=== PATIENT | female | born 1960 | race Caucasian/White ===

== ENCOUNTER → 2016-09-07 | Outpatient (REF) ==
[~2016-09-07] MED LIST: ADV250INH INH; ALBU17IN INH; ALBU83IN INH; ARIP240S PO; ATOR1TAB19 PO; ATOR40TA PO; BIOT1CAP2 PO; BREO1INH3 INH; BUSP10TA PO; BUSP30TA PO; CALC250T PO; CLON1TAB PO; CLONI1TA PO; DULO30CA PO; FLUT22IN INH; GABA-283 PO; GABA300C3 PO; GLUC500T PO; INCR1INH IN; LASI20TA PO; LEVA500T PO; LEVA750T PO; LISI2.5T3 PO; LYRI100C10 PO; MELO7.5S PO; METF500T PO; MIRT30TA2 PO; MULTCAP PO; NEUR300C PO; NICO14DI20 TD; NICO21PAT TD; NYST10PW TOP; OMEP40CA2 PO; OXYC1TAB23 PO; PERC5TAB6 PO; PRED10TA PO; PRED20TAB PO; ROBA750T4 PO; SALMDISK INH; SOMA350T PO; TIZA4CAP3 PO; TOPA100T8 PO; TRAM50TA2 PO; TRAZ50TA4 PO; VARE1TA PO; VITA10002 PO; ZALE10CA PO; metformin PO
--- NOTE | 2016-09-08 02:42 | REP ---
Clinical: Pain and disability. Technique: AP, lateral, coned-down views of the lumbosacral spine. Comparison: 11/07/2014. Findings: Alignment and lordosis maintained without evidence for acute fracture / compression injury or subluxation. Mild to early moderate multilevel degenerative changes include anterior spurring, endplate sclerosis and hypertrophic facet changes as well as mild disc space narrowing at the L5-L1 level. Impression: Mild to early moderate multilevel degenerative changes. Signed by Ricardo Naranjo MD 09/08/2016 02:35 A
== END ==
LOC: M SMT 13:15
PROVIDERS: ATTEND Internal Medicine
DX: Z02.71 Encounter for disability determination (principal); M54.5 Low back pain

== ENCOUNTER → 2016-09-20 | Day surgery (SDC) | payer OTHER ==
[~2016-09-20] VITALS: Ht 170.2 cm; Wt 103.9 kg
[~2016-09-20] MED LIST changes: +ACETAMINOPH W/CODEINE #3 TAB UD PO PRN; +AMOX500C PO; +BACITRACIN OINT 30GM As Ordered ONE; +DESFLURANE 240 ML INHALANT As Ordered ONE; +LIDOCAINE 2% INJ 100 MG/5 ML SDV (FOR ANES.) As Ordered ONE; +LIDOCAINE W/EPINEPHRINE 1% 20ML VIAL As Ordered ONE; +LIDOCAINE W/EPINEPHRINE 1% 20ML VIAL XX ONE; +LR 1,000 ML IV SCH; +MIDAZOLAM INJ 2 MG/2 ML VIAL (J2250) As Ordered ONE; +MORPHINE 2 MG/ML 1ML SYRINGE IV PRN; +ONDANSETRON 4MG/2ML VIAL (J2405) As Ordered ONE; +ONDANSETRON 4MG/2ML VIAL (J2405) IV PRN; +PROPOFOL 200 MG/20 ML VIAL As Ordered ONE; +ROCURONIUM BROMIDE 50 MG/5 ML VIAL As Ordered ONE; +SUCCINYLCHOLINE 100 MG/5 ML SYRINGE (J0330) As Ordered ONE; +ePHEDrine SULFATE 25 MG/5 ML(5MG/ML) SYRINGE As Ordered ONE; +fentaNYL 100 MCG/2 ML INJECTION (J3010) As Ordered ONE
[2016-09-20] MEDS: fentaNYL 100 MCG/2 ML INJECTION (J3010) IV PRN ×4 (09:08→09:31)
[2016-09-20 10:50] VITALS: BP 130/66
--- NOTE | 2016-09-20 18:28 | RO ---
DATE OF PROCEDURE: 09/20/2016 PREOPERATIVE DIAGNOSIS: Mass right neck. POSTOPERATIVE DIAGNOSIS: Mass right neck. OPERATIVE PROCEDURE: Excision mass right neck. SURGEON: Gabe Viera MD ACCOUNT SERVICES SPECIALIST: ANESTHESIA: DESCRIPTION OF PROCEDURE: Under general anesthesia with the patient intubated, the patient was draped in the usual manner. I used a Nim monitor during the procedure. I went through the previous parotidectomy scar. I divided the skin and subcutaneous tissues. Using sharp and blunt dissection, I dissected through the tissues around the mass. I did use the nerve stimulator to ensure that the nerve was not in the area that I was cutting. I did identify the structure that looked like the nerve and overlies that other way. I removed the mass. Bleeding was controlled with cautery. I did use the harmonic scalpel. Then I revised the previous skin incision by incising tissue anteriorly on the anterior part of the dissection and then in inferior along the lobule. I then sutured the area with #4-0 Vicryl and #5-0 nylon. I did put Surgicel in the wound prior to closure. The patient tolerated the procedure well. The patient was extubated and transferred to the recovery room in excellent condition. Date: 09/20/2016 ADDENDUM: Last Pattern Grader was Cameron Astudillo.
--- NOTE | 2016-09-20 22:13 | ECGEPIP ---
Stationary ECG Study [facility] Test Date: 2016-09-20 Pat Name: NATHALIE ORLANDO Department: Room: - Gender: F Discharge Planner: MENDOZA : 1960 Requested By: MARILYN Montano Order Number: [id number] Reading MD: Sheldon Mcelryo Measurements Intervals [place] Rate: 90 P: 60 DC: 193 QRS: 69 QRSD: 92 T: 42 QT: 367 QTc: 450 Interpretive Statements SINUS RHYTHM LOW QRS VOLTAGE IN PRECORDIAL LEADS ANTEROSEPTAL MYOCARDIAL INFARCTION, OF INDETERMINATE AGE Decreased heart rate and decreased anteroseptal R waves compared with 03/07/2015. Electronically Signed On 09-20-2016 22:13:37 EST by Sheldon Mcelroy
== END | disposition home or self-care (01) ==
LOC: M SDC 05:41
PROVIDERS: ATTEND Otolaryngology
DX: R22.1 Localized swelling, mass and lump, neck (principal); D48.5 Neoplasm of uncertain behavior of skin; J43.9 Emphysema, unspecified; G89.29 Other chronic pain; M54.5 Low back pain; F32.89 Other specified depressive episodes; E11.40 Type 2 diabetes mellitus with diabetic neuropathy, unspecified; E78.2 Mixed hyperlipidemia; F41.1 Generalized anxiety disorder; G47.33 Obstructive sleep apnea (adult) (pediatric); Z98.84 Bariatric surgery status; K76.0 Fatty (change of) liver, not elsewhere classified; Z72.0 Tobacco use; T88.59XD Other complications of anesthesia, subsequent encounter; I25.2 Old myocardial infarction; I10 Essential (primary) hypertension; K21.9 Gastro-esophageal reflux disease without esophagitis; R06.02 Shortness of breath; Z91.09 Other allergy status, other than to drugs and biological substances; Z79.899 Other long term (current) drug therapy
CPT/HCPCS: 21555; 88305; 93005; J0330; J2250; J2405; J3010

== ENCOUNTER → 2016-11-15 | Outpatient (CLI) | payer OTHER ==
[~2016-11-15] MED LIST changes: -ACETAMINOPH W/CODEINE #3 TAB UD PO PRN; -BACITRACIN OINT 30GM As Ordered ONE; -DESFLURANE 240 ML INHALANT As Ordered ONE; +GABA-282 PO; -GABA300C3 PO; -LIDOCAINE 2% INJ 100 MG/5 ML SDV (FOR ANES.) As Ordered ONE; -LIDOCAINE W/EPINEPHRINE 1% 20ML VIAL As Ordered ONE; -LIDOCAINE W/EPINEPHRINE 1% 20ML VIAL XX ONE; -LR 1,000 ML IV SCH; -MIDAZOLAM INJ 2 MG/2 ML VIAL (J2250) As Ordered ONE; -MORPHINE 2 MG/ML 1ML SYRINGE IV PRN; -ONDANSETRON 4MG/2ML VIAL (J2405) As Ordered ONE; -ONDANSETRON 4MG/2ML VIAL (J2405) IV PRN; -PROPOFOL 200 MG/20 ML VIAL As Ordered ONE; -ROCURONIUM BROMIDE 50 MG/5 ML VIAL As Ordered ONE; -SUCCINYLCHOLINE 100 MG/5 ML SYRINGE (J0330) As Ordered ONE; -ePHEDrine SULFATE 25 MG/5 ML(5MG/ML) SYRINGE As Ordered ONE; -fentaNYL 100 MCG/2 ML INJECTION (J3010) As Ordered ONE
--- NOTE | 2016-11-20 23:53 | ECWPNPC ---
PATIENT NAME: NATHALIE ORLANDO : 1960 GENDER: FEMALE VISIT DATE: 11/15/2016 DISCHARGE DATE: 11/15/16 1425 VISIT LOCKED DATE TIME: PHYSICIAN: BOSTON ZIMMERMAN RESOURCE: BOSTON ZIMMERMAN REASON FOR APPOINTMENT 1. LOW BACK PAIN HISTORY OF PRESENT ILLNESS HISTORY OF PRESENT ILLNESS: PAIN THE PATIENT DESCRIBES THE PAIN... 56 YEAR OLD FEMALE PATIENT WITH HISTORY OF CHRONIC LOW BACK PAIN. PATIENT DESCRIBES THE PAIN ACHING, STABBING, SORE, AND HAVING IT ALL THE TIME WITH A PAIN SCORE OF 10/10. PATIENT STATES THAT SHE HURT HER BACK MANY YEARS AGO WHILE TRYING TO SIT IN A CHAIR WITH WHEELS AND MISSED THE CHAIR AND FELL ON THE CONCRETE FLOOR. PATIENT RECENTLY FELL AND REPORTS A NEW PAIN RADIATING DOWN HER LEG AND WOULD LIKE TO RECEIVE A NEW MRI TO SEE IF THERE ARE ANY NEW FINDINGS. PATIENT IS CURRENTLY NOT USING ANY MEDICATION TO AID IN PAIN RELIEF. MRS. ORLANDO STATES THAT ANY TYPE OF ACTIVITY INCREASES THE PAIN IN THE LOWER BACK AND AT THIS TIME THE ONLY THING THAT HELPS WITH RESTING. PATIENT DENIES UNEXPLAINABLE WEIGHT LOSS, FEVER, CHILLS, NEW CHANGES ON HER URINARY OR BOWEL CONTROL. FALL RISK SCREENING: SCREENING :NO FALLS IN THE PAST YEAR CURRENT MEDICATIONS TAKING VENTOLIN HFA 108 (90 BASE) MCG/ACT AEROSOL SOLUTION 2 PUFFS NEEDED FOR WHEEZING , COUGH INHALATION EVERY 4 HRS TAKING CHANTIX CONTINUING MONTH DIONE 1 MG TABLET 1 TABLET ORALLY TWICE A DAY TAKING NYSTATIN POWDER 419080 UNIT/GM POWDER DIRECTED EXTERNALLY UNDER BREAST FOLDS TWICE A DAY PRN BREAKDOWN TAKING FLINTSTONES COMPLETE 60 MG TABLET CHEWABLE 2 TABLETS ORALLY ONCE A DAY TAKING VITAMIN B-12 500 MCG TABLET 1 TABLETS ORALLY ONCE A DAY TAKING CALCIUM CITRATE 500 MG CAPSULE 1 TAB ORALLY ONCE A DAY TAKING BREO ELLIPTA 200-25 MCG/INH AEROSOL POWDER BREATH ACTIVATED 1 PUFF INHALATION ONCE A DAY, NOTES: DR. AZAR12/09/15 TAKING INCRUSE ELLIPTA 62.5 MCG/INH AEROSOL POWDER BREATH ACTIVATED 1 PUFF INHALATION ONCE A DAY, NOTES: 12/09/15 TAKING BUSPIRONE HCL 30 MG TABLET 1 TAB ORALLY TWICE DAILY, NOTES: STILL ON TAKING LYRICA 150 MG CAPSULE (SCHEDULE V DRUG) TAKE ONE CAPSULE BY MOUTH THREE TIMES A DAY WITH MEALS MAXIMUM DAILY DOSE 3 CAPSULES ORALLY , NOTES: 06/12 TO RESTART,VERIFIED TAKING KLONOPIN 1 MG TABLET 1 TABLET ORALLY TWICE A DAY TAKING MIRTAZAPINE 30 MG TABLET 1 TAB ORAL BEFORE BEDTIME, NOTES: VERIFIED (REMERON) 05/30/16 TAKING TEMAZEPAM 15 MG CAPSULE (SCHEDULE IV DRUG) TAKE ONE CAPSULE BY MOUTH AT BEDTIME MAXIMUM DAILY DOSE 1 CAPSULE ORAL MEDICATION LIST REVIEWED AND RECONCILED WITH THE PATIENT PAST MEDICAL HISTORY COPD SEES DR. AZAR -- "EMPHYSEMA" CHRONIC BACK PAIN- FOLLOWS WITH DR. 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 SURGICAL HISTORY C SECTION R WRIST FOR TENDON FX NOSE MULTIPLE CYST REMOVED GASTRIC BYPASS 04/2015 PAROTIDECTOMY 11/2014 EXCISION OF LESION OF RIGHT SIDE OF NECK 09/20/2016 FAMILY HISTORY MOTHER AGE 75 COBY KIM- BREAST CANCERFATHER AGE 73 COLORECTAL, LUNG CANCER3 BROTHERS, 2 SISTERS1-SISTER - LIVER FAILURE1-TWIN BROTHER- ANDREINA KIM, FOLLOWS WITH DR. RANDHAWA X 1- [place] X1-[place]. SOCIAL HISTORY GENERAL: PAIN CLINIC PFS, CLERGY, PUBLIC HEALTH REFERRALS CLERGY REFERRAL NEEDED?NO WAS THE PROVIDER NOTIFIED OF ANY PERTINENT INFO?NO PFS REFERRAL NEEDED?NO PUBLIC HEALTH REFERRAL NEEDED?NO PATIENT: ____. HOSPITALIZATION/MAJOR DIAGNOSTIC PROCEDURE PNEUMONIA X2 2008 GASTRIC BYPASS 04/2015 [facility] ER-UPPER ABDOMINAL PAIN,UNSPECIFIED,FATTY (CHANGE OF) LIVER, HEPATOMEGALY 01/06/2016 REVIEW OF SYSTEMS CONSTITUTIONAL: ANY CHANGE IN YOUR MEDICAL CONDITION? NO . CHILLS NO . FEVER NO . INFECTION: DO YOU HAVE NEW INFECTIONS? NO . DO YOU HAVE HISTORY OF MRSA? NO . MUSCULOSKELETAL: ANY NEW PATTERNS OF PAIN OR NUMBNESS? YES, STILL LOWER BACK AND NOW SHOOTING DOWN LEGS INTO THE FRONT OF LEGS, SINCE FALL DOWNSTAIRS ON MONDAY. . GASTROENTEROLOGY: ANY NEW CHANGE IN BOWEL CONTROL? NO . GENITOURINARY: ANY NEW CHANGE IN BLADDER CONTROL? NO . IS THERE A CHANCE YOU COULD BE ? NO . HEMATOLOGY/LYMPH: DO YOU TAKE ANY BLOOD THINNERS? (FOR EXAMPLE- COUMADIN, PLAVIX, AGGRENOX, PLATEL, PRADAXA, OR XARELTO) NO . WHEN WAS YOUR LAST DOSE? DATE: TIME: . NEUROLOGY: HAVE YOU FALLEN IN THE PAST 6 MONTHS? YES . ANY NEW EXTREMITY NUMBNESS OR WEAKNESS? NO . CARDIOLOGY: DO YOU HAVE A PACEMAKER OR DEFIBRILLATOR? NO . RESPIRATORY: HAVE YOU BEEN SICK IN THE PAST WEEK? NO . FEVER NO . FLU LIKE SYMPTOMS? NO . COUGH NO . INTEGUMENTARY: DO YOU HAVE ANY RASHES OR OPEN SORES? NO . ALLERGIC/IMMUNO: ARE YOU ALLERGIC TO SHELLFISH OR IV DYE? NO . ANY NEW ALLERGIES? NO . PSYCHIATRIC: DO YOU HAVE THOUGHTS OF HURTING YOURSELF OR SOMEONE ELSE? NO . ARE YOU ABUSED, NEGLECTED, OR IN AN UNSAFE ENVIRONMENT? NO . ENDOCRINOLOGY: ARE YOU DIABETIC? YES . OTHER: DO YOU NEED ANY PRESCRIPTIONS? NO . IF YES, PLEASE LIST: ____ . ANY NEW PROBLEMS WITH YOUR MEDICATIONS? NO . WHEN DID YOU LAST EAT? ____ . WHEN DID YOU LAST DRINK? ____ . WHAT DID YOU LAST DRINK? ____ . NAME OF PERSON DRIVING YOU HOME? ____ . DO YOU HAVE ANY OTHER QUESTIONS OR CONCERNS NO . REVIEWED BY: PROVIDER: BOSTON ZIMMERMAN MD . VITAL SIGNS WT 252.2 LBS, HT 67 IN, BMI 39.50 INDEX, BP 174/98 MM HG, HR 80 /MIN, RR 18 /MIN, TEMP 98.4 F, OXYGEN SAT % 92, NA INITIALS AW 1326ADVISED PATIENT TO KEEP TRACK OF HER B/P. CM. EXAMINATION : PATIENT IS ALERT O X 3 AND COOPERATIVE. THERE IS TENDERNESS IN THE LOWER BACK AND IN THE PARASPINAL MUSCLE GROUP AND OVER THE AREA OF THE SACROILIAC JOINTS. MRI OF THE LUMBOSACRAL SPINE DONE ON 11/14/2014 SHOWS SOME DISC PROTRUSION AND FACET ARTHROPATHY CHANGES. ASSESSMENTS INTERVERTEBRAL DISC DISORDERS WITH RADICULOPATHY, LUMBAR REGION - M51.16 (PRIMARY) INTERVERTEBRAL DISC DISORDERS WITH RADICULOPATHY, LUMBOSACRAL REGION - M51.17 TREATMENT INTERVERTEBRAL DISC DISORDERS WITH RADICULOPATHY, LUMBAR REGION NOTES: WE DISCUSSED SEVERAL ISSUES WITH MRS. ORLANDO'S PAIN MANAGEMENT CASE. DUE TO WHERE THE PATIENT STATES SHE IS HAVING PAIN AND AFTER VIEWING THE MRI I DISCUSSED WITH THE PATIENT DIFFERENT INTERVENTIONS THAT MAY AID IN PAIN RELIEF. WE DISCUSSED IN DETAIL MOVING FORWARD WITH A LUMBAR EPIDURAL DUE TO THE RADICULAR PAIN. WE DISCUSSED THE RISKS, BENEFITS, AND ALTNERATIVES OF THE INJECTION AND THE PATIENT WOULD LIKE TO PROCEED AT THIS TIME. INSTRUCTIONS WERE GIVEN, QUESTIONS WERE ANSWERED, PATIENT REPORTS UNDERSTANDING AND AGREES WITH THE PLAN. I, LINDSAY EASLEY, DOCUMENTED THE ABOVE INFORMATION ACTING A SCRIBE FOR DR. ZIMMERMAN. I HAVE REVIEWED THE ABOVE DOCUMENT, WRITTEN BY LINDSAY YA AND I VERIFY THAT IT IS ACCURATE. PROCEDURE CODES FA211 ESTABILISHED PATIENT [facility] CHARGE G8427 DOC MEDS VERIFIED W/PT OR RE G8730 PAIN ASSESS POS TOOL F/U PLAN DOC DISPOSITION & COMMUNICATION FOLLOW UP LESI AFTER APPROVAL ELECTRONICALLY SIGNED BY BOSTON ZIMMERMAN MD ON 11/20/2016 AT 04:59 PM EDT DISCLAIMER : THIS IS A VISIT SUMMARY EXTRACTED FROM THE [employer] CHART. IT IS NOT A COPY OF THE [employer] PROGRESS NOTE. ALDA
== END ==
LOC: M PAIN 13:20
PROVIDERS: ATTEND Anesthesiology
DX: G89.29 Other chronic pain (principal); M51.16 Intervertebral disc disorders with radiculopathy, lumbar region; M51.17 Intervertebral disc disorders with radiculopathy, lumbosacral region; J44.9 Chronic obstructive pulmonary disease, unspecified; F32.9 Major depressive disorder, single episode, unspecified; E11.40 Type 2 diabetes mellitus with diabetic neuropathy, unspecified; E78.5 Hyperlipidemia, unspecified; G47.33 Obstructive sleep apnea (adult) (pediatric); K76.0 Fatty (change of) liver, not elsewhere classified; Z98.84 Bariatric surgery status; Z79.51 Long term (current) use of inhaled steroids; Z79.899 Other long term (current) drug therapy

== ENCOUNTER 2016-12-13 07:42 | Emergency (ER) | payer OTHER ==
[~2016-12-13] VITALS: Ht 170.2 cm; Wt 108.9 kg
[2016-12-13] MEDS ORDERED: PERCOCET 5MG/325MG TAB PO ONE (09:15)
[2016-12-13 09:55] VITALS: BP 148/86
[2016-12-13] MEDS ORDERED: PERC5TAB6 PO (10:18)
--- NOTE | 2016-12-13 11:25 | REP ---
LEFT SHOULDER SERIES: THREE VIEWS. HISTORY: Left shoulder pain. No trauma. FINDINGS: The left glenohumeral and acromioclavicular joints are normally aligned. Periarticular soft tissues are unremarkable. The visualized left rib cage is intact. No bony erosive changes seen. IMPRESSION: No abnormality noted. Signed by Tyrese Brar MD 12/13/2016 12:27 P
== END 2016-12-13 10:38 | disposition home or self-care (01) ==
LOC: M ED 08:49
DX: M19.012 Primary osteoarthritis, left shoulder (principal); M75.92 Shoulder lesion, unspecified, left shoulder; E11.40 Type 2 diabetes mellitus with diabetic neuropathy, unspecified; I10 Essential (primary) hypertension; J45.909 Unspecified asthma, uncomplicated; G43.909 Migraine, unspecified, not intractable, without status migrainosus; M51.36 Other intervertebral disc degeneration, lumbar region; Z79.899 Other long term (current) drug therapy; Z79.51 Long term (current) use of inhaled steroids; J30.81 Allergic rhinitis due to animal (cat) (dog) hair and dander; F17.210 Nicotine dependence, cigarettes, uncomplicated

== ENCOUNTER → 2016-12-15 | Outpatient (REF) | payer OTHER ==
[2016-12-15 18:11] LABS: ALBUMIN 3.3 GM/DL (3.2-5.2); ALKALINE PHOSPHATASE 163 U/L (45-117); ALT/SGPT 37 U/L (12-78); ANION GAP 6 MEQ/L (8-16); AST/SGOT 20 U/L (15-37); BILIRUBIN,TOTAL 0.2 MG/DL (0.2-1.0); BLOOD UREA NITROGEN 7 MG/DL (7-18); CALCIUM LEVEL 8.4 MG/DL (8.5-10.1); CARBON DIOXIDE LEVEL 29 MEQ/L (21-32); CHLORIDE LEVEL 109 MEQ/L (98-107); CHOLESTEROL LEVEL 196 MG/DL (<200); CREATININE FOR GFR 0.61 MG/DL (0.55-1.02); GLOMERULAR FILTRATION RATE > 60.0 (>51); GLUCOSE, FASTING 82 MG/DL (70-105); MAGNESIUM LEVEL 2.2 MG/DL (1.8-2.4); POTASSIUM SERUM 3.9 MEQ/L (3.5-5.1); SODIUM LEVEL 144 MEQ/L (136-145); TOTAL PROTEIN 6.3 GM/DL (6.4-8.2); TRIGLYCERIDES LEVEL 245 MG/DL (<150)
[2016-12-15 18:45] LABS: MEAN CORPUSCULAR HEMOGLOBIN 31.8 pg (27.0-33.0); MEAN CORPUSCULAR HGB CONC 32.8 g/dl (32.0-36.5); MEAN CORPUSCULAR VOLUME 97.1 fl (80.0-96.0); RED CELL DISTRIBUTION WIDTH 13.3 % (11.5-14.5); WHITE BLOOD COUNT 8.9 K/mm3 (4.0-10.0)
== END ==
LOC: M SFHCPLAZ 16:01
PROVIDERS: ATTEND Internal Medicine
DX: Z98.84 Bariatric surgery status (principal); E11.9 Type 2 diabetes mellitus without complications; E78.2 Mixed hyperlipidemia

== ENCOUNTER → 2016-12-21 | Outpatient (CLI) | payer OTHER ==
[~2016-12-21] MED LIST changes: +ISOVUE-M 300 61% 15ML VIAL (Q9967) As Ordered ONE; +LIDOCAINE 1% SDV INJ 30 ML VIAL As Ordered ONE; +diazePAM 5 MG TAB As Ordered ONE; +methylPREDNISolone SUSP 40 MG/ML (DEPO-medrol) VIAL (J1030) As Ordered ONE; +oxyCODONE 5MG TAB As Ordered ONE
--- NOTE | 2016-12-21 11:29 | REP ---
PARTIAL LUMBAR SPINE SERIES: Two views. HISTORY: Lumbar epidural steroid injection for pain. 8 seconds of fluoroscopy time is reported. FINDINGS: A sequence of two fluoroscopically obtained last image hold intraprocedural spot radiographs of the lumbar spine document needle position and contrast injection associated with steroid injection procedure. Signed by Tyrese Brar MD 12/21/2016 02:09 P
--- NOTE | 2016-12-24 00:08 | ECWPNPC ---
PATIENT NAME: NATHALIE ORLANDO : 1960 GENDER: FEMALE VISIT DATE: 12/21/2016 DISCHARGE DATE: 12/21/16 1047 VISIT LOCKED DATE TIME: PHYSICIAN: BOSTON ZIMMERMAN RESOURCE: BOTSON ZIMMERMAN REASON FOR APPOINTMENT 1. LESI HISTORY OF PRESENT ILLNESS HISTORY OF PRESENT ILLNESS: PAIN THE PATIENT DESCRIBES THE PAIN... FALL RISK SCREENING: SCREENING :NO FALLS IN THE PAST YEAR CURRENT MEDICATIONS TAKING FLINTSTONES COMPLETE 60 MG TABLET CHEWABLE 2 TABLETS ORALLY ONCE A DAY, NOTES: 0800 YESTERDAY TAKING VITAMIN B-12 500 MCG TABLET 1 TABLETS ORALLY ONCE A DAY, NOTES: 0800 YESTERDAY TAKING CALCIUM CITRATE 500 MG CAPSULE 1 TAB ORALLY ONCE A DAY, NOTES: 8PM 12/20/16 TAKING BREO ELLIPTA 200-25 MCG/INH AEROSOL POWDER BREATH ACTIVATED 1 PUFF INHALATION ONCE A DAY, NOTES: DR. AZAR12/09/15 TAKING INCRUSE ELLIPTA 62.5 MCG/INH AEROSOL POWDER BREATH ACTIVATED 1 PUFF INHALATION ONCE A DAY, NOTES: 12/09/15 TAKING BUSPIRONE HCL 30 MG TABLET 1 TAB ORALLY TWICE DAILY, NOTES: 8PM 12/20/16 TAKING LYRICA 150 MG CAPSULE (SCHEDULE V DRUG) TAKE ONE CAPSULE BY MOUTH THREE TIMES A DAY WITH MEALS MAXIMUM DAILY DOSE 3 CAPSULES ORALLY , NOTES: 8PM 12/20/16 TAKING KLONOPIN 1 MG TABLET 1 TABLET ORALLY TWICE A DAY, NOTES: 8PM 12/20/16 TAKING MIRAPEX 0.125 MG TABLET 1 TABLET BEFORE BEDTIME ORALLY ONCE A DAY, NOTES: 8PM 12/20/16 TAKING VENLAFAXINE HCL 100 MG TABLET 1 1/2 TABLET WITH FOOD ORALLY ONCE A DAY, NOTES: 0800 YESTERDAY TAKING NYSTATIN POWDER [id number] UNIT/GM POWDER DIRECTED EXTERNALLY UNDER BREAST FOLDS TWICE A DAY PRN BREAKDOWN TAKING VENTOLIN HFA 108 (90 BASE) MCG/ACT AEROSOL SOLUTION 2 PUFFS NEEDED FOR WHEEZING , COUGH INHALATION EVERY 4 HRS, NOTES: 0800 12/21/16 NOT-TAKING MIRTAZAPINE 30 MG TABLET 1 TAB ORAL BEFORE BEDTIME, NOTES: VERIFIED (REMERON) 05/30/16 MEDICATION LIST REVIEWED AND RECONCILED WITH THE PATIENT PAST MEDICAL HISTORY COPD SEES DR. ZAAR -- "EMPHYSEMA" CHRONIC BACK PAIN- FOLLOWS WITH DR. 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 REVIEW OF SYSTEMS CONSTITUTIONAL: ANY CHANGE IN YOUR MEDICAL CONDITION? NO . CHILLS NO . FEVER NO . INFECTION: DO YOU HAVE NEW INFECTIONS? NO . DO YOU HAVE HISTORY OF MRSA? NO . MUSCULOSKELETAL: ANY NEW PATTERNS OF PAIN OR NUMBNESS? NO . GASTROENTEROLOGY: ANY NEW CHANGE IN BOWEL CONTROL? NO . GENITOURINARY: ANY NEW CHANGE IN BLADDER CONTROL? NO . IS THERE A CHANCE YOU COULD BE ? NO . HEMATOLOGY/LYMPH: DO YOU TAKE ANY BLOOD THINNERS? (FOR EXAMPLE- COUMADIN, PLAVIX, AGGRENOX, PLATEL, PRADAXA, OR XARELTO) NO . WHEN WAS YOUR LAST DOSE? DATE: TIME: . NEUROLOGY: HAVE YOU FALLEN IN THE PAST 6 MONTHS? NO . ANY NEW EXTREMITY NUMBNESS OR WEAKNESS? NO . CARDIOLOGY: DO YOU HAVE A PACEMAKER OR DEFIBRILLATOR? NO . RESPIRATORY: HAVE YOU BEEN SICK IN THE PAST WEEK? NO . FEVER NO . FLU LIKE SYMPTOMS? NO . COUGH NO . INTEGUMENTARY: DO YOU HAVE ANY RASHES OR OPEN SORES? NO . ALLERGIC/IMMUNO: ARE YOU ALLERGIC TO SHELLFISH OR IV DYE? NO . ANY NEW ALLERGIES? NO . PSYCHIATRIC: DO YOU HAVE THOUGHTS OF HURTING YOURSELF OR SOMEONE ELSE? NO . ARE YOU ABUSED, NEGLECTED, OR IN AN UNSAFE ENVIRONMENT? NO . ENDOCRINOLOGY: ARE YOU DIABETIC? NO . OTHER: DO YOU NEED ANY PRESCRIPTIONS? NO . IF YES, PLEASE LIST: ____ . ANY NEW PROBLEMS WITH YOUR MEDICATIONS? NO . WHEN DID YOU LAST EAT? LAST NIGHT . WHEN DID YOU LAST DRINK? LAST NIGHT . WHAT DID YOU LAST DRINK? WATER . NAME OF PERSON DRIVING YOU HOME? MARCIO . DO YOU HAVE ANY OTHER QUESTIONS OR CONCERNS NO . REVIEWED BY: PROVIDER: . VITAL SIGNS WT 261.8 LBS, HT 67 IN, BMI 41.00 INDEX, BP 137/67 MM HG, HR 77 /MIN, RR 18 /MIN, TEMP 99.2 F, OXYGEN SAT % 95%, NA INITIALS SC 09:09, REVIEWED BY: NL. ASSESSMENTS INTERVERTEBRAL DISC DISORDERS WITH RADICULOPATHY, LUMBAR REGION - M51.16 (PRIMARY) PROCEDURES PRE PROCEDURE DIAGNOSIS LUMBAR RADICULOPATHY, LUMBAR DISC DISORDER WITH RADICULOPATHY POST PROCEDURE DIAGNOSIS LUMBAR RADICULOPATHY , LUMBAR DISC DISORDER WITH RADICULOPATHY PROCEDURE L4-L5 LUMBAR EPIDURAL STEROID INJECTION UNDER FLUOROSCOPIC GUIDANCE SURGEON DR. BOSTON ZIMMERMAN PAN GREASER NONE ANESTHESIA LOCAL PRE PROCEDURE NOTE THE PATIENT HAS A HISTORY OF CHRONIC LOW BACK PAIN. I EVALUATE THE PATIENT AND REVIEWED THE CHART. I WENT OVER THE RISKS, ALTERNATIVES, AND BENEFITS ASSOCIATED WITH THIS PROCEDURE. THE PATIENT WOULD LIKE TO PROCEED AND GIVE CONSENT TO PERFORMED THE PROCEDURE. THE PATIENT DENIES UNEXPLAINABLE WEIGHT LOSS, FEVER, CHILLS, OR NEW CHANGES IN URINARY OR BOWEL CONTROL. DESCRIPTION OF PROCEDURE THE PATIENT WAS BROUGHT TO THE PROCEDURE ROOM AND PLACED IN THE PRONE POSITION. THE LUMBOSACRAL AREA WAS CLEANED WITH BETADINE SOLUTION AND DRAPED ASEPTICALLY. THE PROCEDURE WAS DONE UNDER STERILE CONDITIONS. I CHECKED LATERALITY AND THE LEVEL WHERE THE PROCEDURE WAS GOING TO BE PERFORMED WITH THE PATIENT AND THE SUPPORTING STAFF AT THE MOMENT OF THE TIME OUT IN THE PROCEDURE ROOM. UNDER FLUOROSCOPIC GUIDANCE, THE TARGET POINT WAS SELECTED AT THE INTERLAMINAR LEVEL OF L4-L5. LIDOCAINE WAS USED TO NUMB THE SKIN AND THE SUBCUTANEOUS TISSUE BELOW IT. EPIDURAL TUOHY NEEDLE, 17-GAUGE, WAS ADVANCED UNDER FLUOROSCOPIC GUIDANCE AND FOLLOWING PATIENT FEEDBACK UNTIL THE EPIDURAL SPACE WAS REACHED, 7 CM DEEP INTO THE SKIN BY THE LOSS OF RESISTANCE TECHNIQUE. ISOVUE M DYE 30%, 0.25 ML, WAS INJECTED SHOWING ADEQUATE SPREAD OF THE DYE. THEN, A SOLUTION OF 3 ML OF NORMAL SALINE WITH DEPO-MEDROL 60 MG WAS INJECTED SLOWLY FOLLOWING PATIENT FEEDBACK. THERE WAS NO EVIDENCE OF BLOOD, PARESTHESIA OR CEREBROSPINAL FLUID DURING THE PROCEDURE. THE PATIENT WAS SENT TO THE RECOVERY ROOM. THE PATIENT WAS MOVING THE EXTREMITIES AND DOING WELL. THERE WAS NO COMPLICATION DURING THE PROCEDURE. FLUOROSCOPY TIME WAS 8 SECONDS. POST PROCEDURE NOTE THE PATIENT WILL BE SEEN IN A FOLLOW UP IN THE NEXT FEW WEEKS. INSTRUCTIONS WERE GIVEN, QUESTIONS WERE ANSWERED, AND THE PATIENT EXPRESSED UNDERSTANDING AND AGREES WITH THE PLAN. I, SANDRO ALANIS, DOCUMENTED THE ABOVE INFORMATION ACTING A SCRIBE FOR DR. ZIMMERMAN. I HAVE REVIEWED THE ABOVE DOCUMENT, WRITTEN BY SANDRO MIDLDETONIBJeovanny AND I VERIFY THAT IT IS ACCURATE DIAGNOSTIC IMAGING [facility] FLUORO GUIDE SPINE INJECTION (PAIN)[id number] PROCEDURE CODES 04164 LUMBAR/SACRAL W/ IMAGING 6045F RADXPS IN END [id number] PXD DISPOSITION & COMMUNICATION FOLLOW UP 3 WEEKS ELECTRONICALLY SIGNED BY BOSTON ZIMMERMAN MD ON 12/23/2016 AT 04:07 PM EDT DISCLAIMER : THIS IS A VISIT SUMMARY EXTRACTED FROM THE [employer] CHART. IT IS NOT A COPY OF THE [employer] PROGRESS NOTE. FARZADD
== END ==
LOC: M PAIN 09:00
PROVIDERS: ATTEND Anesthesiology
DX: G89.29 Other chronic pain (principal); M51.16 Intervertebral disc disorders with radiculopathy, lumbar region; M54.5 Low back pain; Z79.899 Other long term (current) drug therapy; E78.2 Mixed hyperlipidemia; E11.22 Type 2 diabetes mellitus with diabetic chronic kidney disease; F32.9 Major depressive disorder, single episode, unspecified; J44.1 Chronic obstructive pulmonary disease with (acute) exacerbation; E78.00 Pure hypercholesterolemia, unspecified; E78.1 Pure hyperglyceridemia

== ENCOUNTER 2017-02-10 12:27 | Emergency (ER) | payer OTHER ==
[~2017-02-10] VITALS: Ht 170.2 cm; Wt 116.4 kg
[2017-02-10 12:27] VITALS: BP 159/97
[~2017-02-10 12:27] MED LIST changes: -ATOR40TA PO; +ATOR40TA75 PO; -ISOVUE-M 300 61% 15ML VIAL (Q9967) As Ordered ONE; +LEVA1TAB2 PO; -LEVA500T PO; -LEVA750T PO; +LEVA750T7 PO; -LIDOCAINE 1% SDV INJ 30 ML VIAL As Ordered ONE; -LYRI100C10 PO; -METF500T PO; +METF500T13 PO; +PERC5TAB12 PO; -PERC5TAB6 PO; +PREG100CA PO; +TOPA100T12 PO; -TOPA100T8 PO; +TRAZ50TA11 PO; -TRAZ50TA4 PO; -diazePAM 5 MG TAB As Ordered ONE; -methylPREDNISolone SUSP 40 MG/ML (DEPO-medrol) VIAL (J1030) As Ordered ONE; -oxyCODONE 5MG TAB As Ordered ONE
[2017-02-10] MEDS ORDERED: NORCO, ANEXSIA 5/325MG TABLET (HYDROcodone/ACETAMINOPHEN) PO ONE (13:00)
== END 2017-02-10 13:03 | disposition home or self-care (01) ==
LOC: M ED 12:27
DX: G56.02 Carpal tunnel syndrome, left upper limb (principal); S60.417A Abrasion of left little finger, initial encounter; X58.XXXA Exposure to other specified factors, initial encounter; Y92.89 Other specified places as the place of occurrence of the external cause; Y93.89 Activity, other specified; Y99.9 Unspecified external cause status